=== PATIENT | female | born 1935 | race Caucasian/White ===

== ENCOUNTER 2018-02-08 12:34 | Emergency (ER) | payer MEDICARE ==
[2018-02-08] MEDS ORDERED: HYDROcodone/Acetaminophen 5/325 mg Tablet ONE (14:06)
--- NOTE | 2018-02-08 14:13 | CT ---
CT BRAIN NONCONTRAST: HISTORY: An 82-year-old female, status post acute head trauma from fall. FINDINGS: There is no midline shift or any other mass effect. There is no evidence of acute intracranial hemor rhage, large cortical infarct, obstructive hydrocephalus, or extraaxial fluid collection. The calvar ium is intact. There is diffuse parenchymal volume loss. There are low attenuation areas in the whi te matter. These are nonspecific, but in a patient of this age, they are probably chronic ischemic w lorin matter changes due to microvascular atherosclerosis. There is a left posterior scalp hematoma. IMPRESSION: 1) No acute intracranial findings. 2) Involutional changes and chronic ischemic white matter changes. 3) Acute, traumatic left parieto-occipital soft tissue scalp hematoma. jn [] POS: [facility]
--- NOTE | 2018-02-08 14:19 | CT ---
CT CERVICAL SPINE: INDICATIONS: Fall with injury to neck. TECHNIQUE: Multiple axial tomograms obtained through the cervical spine with multiplanar reconstruction. FINDINGS: The cervical vertebrae maintain height. There are moderate degenerative changes present. There is l oss of disk space at C5-C6 and C6-C7 with posterior subluxation at C5-C6, which appears chronic and d egenerative. There is no evidence of acute fracture. IMPRESSION: Degenerative changes of the cervical spine noted. No acute fracture identified. POS: [facility]
== END 2018-02-08 14:29 | disposition home or self-care (01) ==
LOC: MADERS 12:34
DX: S01.01XA Laceration without foreign body of scalp, initial encounter (principal); W17.89XA Other fall from one level to another, initial encounter
CPT/HCPCS: 70450; 72125

== ENCOUNTER 2018-03-05 12:51 | Emergency (ER) | payer MEDICARE ==
[2018-03-05 14:28] LABS: #Lymphocytes 0.7 thou/uL (1.20-3.40); #Monocytes 0.9 thou/uL (0.11-0.59); #Neutrophils 7.7 thou/uL (1.40-6.50); %Basophils 0.1 % (0.0-1.0); %Eosinophils 0.1 % (0.0-10.0); %Lymphocytes 7.7 % (21.0-51.0); %Monocytes 9.1 % (0.0-10.0); Hemoglobin 14.8 g/dL (12.0-16.0); Mean Corpuscular HGB CONC 32.5 g/dL (32.0-36.0); Mean Corpuscular Hemoglobin 30.7 pg (27.0-31.0); Mean Corpuscular Volume 94.6 fL (78.0-98.0); Mean Platelet Volume 7.4 fL (7.4-10.4); Platelet Count 163 thou/uL (130-400); RBC Distribution Width 12.6 % (11.5-14.5); White Blood Cell (WBC) Count 9.3 thou/uL (4.8-10.8)
[2018-03-05 14:47] LABS: ALT (SGPT) 32 U/L (8-55); AST (SGOT) 48 U/L (5-34); Albumin 4.2 g/dL (3.4-4.8); Alkaline Phosphatase 56 U/L (40-150); Anion Gap 15 mmol/L (10-20); BUN (Urea Nitrogen) 13 mg/dL (9.8-20.1); Bilirubin, Total 1.1 mg/dL (0.2-1.2); CK (CPK) 847 U/L (29-168); Calc. Creatinine Clearance 0 mL/min (70-130); Calcium 9.7 mg/dL (7.8-10.44); Carbon Dioxide 27 mmol/L (23-31); Chloride 106 mmol/L (98-107); Estimated GFR-MDRD 70; Globulin 2.7 g/dL (2.4-3.5); Glucose 95 mg/dL (83-110); Potassium 3.6 mmol/L (3.5-5.1); Protein, Total 6.9 g/dL (6.0-8.3); Sodium 144 mmol/L (136-145)
--- NOTE | 2018-03-05 14:59 | RAD ---
FRONTAL RADIOGRAPH CHEST: 03/05/2018 HISTORY: Altered mental status. COMPARISON: 05/29/2006 FINDINGS: Calcified pulmonary nodules and lymph nodes noted on the right, evidence of prior granulomatous disea se. There is mild increased linear interstitial density with pulmonary hyperinflation. No pneumotho rax of pleural fluid. No focal consolidation or alveolar edema. IMPRESSION: Chronic findings, as detailed above. No focal consolidation or alveolar edema. Findings suggest chr onic obstructive pulmonary disease, in the proper clinical setting. There are also findings consiste nt with prior granulomatous disease. POS: [facility]
--- NOTE | 2018-03-05 15:07 | CT ---
CT CERVICAL SPINE WITHOUT CONTRAST: HISTORY: Neck pain after sliding out of bed this morning. COMPARISON: 02/08/2018 TECHNIQUE: CT cervical spine is performed without contrast. Reformatted images are submitted. FINDINGS: Appropriate articulation of the lateral masses of C1 and C2. Mild degenerative changes of the facets . No malalignment. Intact odontoid process. No craniocervical dissociation. Cervical spine verteb ral body height is maintained. There is no cervical spine fracture. Varying degrees of central canal stenosis and foraminal narrowing, on the basis of degenerative savage e. Evaluation is limited by technique. Soft tissue neck structures are unremarkable. IMPRESSION: 1. Varying degrees of central canal stenosis and foraminal narrowing. 2. No evidence of a cervical spine fracture. POS: [facility]
--- NOTE | 2018-03-05 15:12 | CT ---
CT HEAD NONCONTRAST: INDICATION: Weakness, injury. FINDINGS: There is abnormal mixed density bilateral extraaxial hemorrhagic collection measuring 6 mm at the lev el of the septum pellucidum associated with sulcal effacement of the right hemisphere is noted. No i ntraventricular hemorrhagic extension is seen. There is a small component of subdural hemorrhage ext ending along the interhemispheric falx. Stable calcified extraaxial mass of the left middle cranial fossa is seen. IMPRESSION: Bilateral mixed-density subdural hematomas, greatest on the right, with associated sulcal effacement and leftward subfalcine herniation. Recommend urgent neurosurgical consultation. Telephone call of findings placed to ER physician, Dr. Maximino Miner, at the time of dictation 1440 h ours 03/05/2018. CODE CR
[2018-03-05 15:27] LABS: INR-International Normal Ratio 0.9; Prothrombin Time 12.6 SEC (12.0-14.7)
== END 2018-03-05 16:50 | disposition short-term general hospital (02) ==
LOC: MADERS 12:51
DX: I62.01 Nontraumatic acute subdural hemorrhage (principal); I62.03 Nontraumatic chronic subdural hemorrhage; Z79.899 Other long term (current) drug therapy
CPT/HCPCS: 70450; 71045; 72125; 80053; 82550; 83880; 84484; 85025; 85610; 93005

== ENCOUNTER 2018-03-09 15:27 | Inpatient (IN) | payer MEDICARE ==
[2018-03-09] MEDS ORDERED: Bisacodyl 5 MG TAB PO PRN (17:07)
[2018-03-09] MEDS ORDERED: Ondansetron ODT 4 MG TAB PO PRN (17:07)
[2018-03-09] MEDS ORDERED: Senokot S 8.6-50 MG TAB PO PRN (17:07)
[2018-03-09] MEDS: Acetaminophen 325 MG TAB PO PRN (20:32)
[2018-03-09] MEDS: Famotidine 20 MG TAB PO SCH (20:32)
[2018-03-09] MEDS: Clindamycin 150 MG CAP PO SCH (20:32)
--- NOTE | 2018-03-10 01:00 | HP ---
PRIMARY CARE PHYSICIAN: Out of town. REASON FOR ADMISSION: For skilled rehabilitation at [facility] secondary to physical deconditioning status post acute on chronic subdural hematoma, status post shama hole drain, and status post pacemaker placement due to asystole. HISTORY OF PRESENT ILLNESS: Ms. Traylor is an 82-year-old , very pleasant female, with a past medical history of hypertension, hypothyroidism, and multiple falls. The patient was admitted to [facility] from March 05, 2018 to March 09, 2018. The patient was noted to have acute on chronic subdural hematomas. She initially presented to the emergency room due to physical deconditioning, multiple falls, and confusion. Per the patient's daughter, she was undergoing some cardiac workup as an outpatient to determine the cause of her falls and she was seen by Neurologist, Dr. Mcarthur and was using a cane for ambulation, but she lost the cane in the last month and had fallen multiple times since then. Daughter has noted she was confused on the day of admission, which was not her baseline, so she was presented to the emergency room due to this. During hospitalization, the patient initially declined to have shama surgery, but she later changed her mind. The patient did undergo the procedure by Dr. Ariel Pedro on March 07, 2018. Then, she had a drain placed and the subdural drain later removed on February. The patient tolerated the procedure and was back in baseline. The patient was also noted to have asystole, tachycardia with bradycardia during hospitalization and the decision was made to refer the patient to have a pacemaker. The patient did undergo pacemaker placement also on the and she tolerated this well. The decision was made to admit the patient in a Swing Bed for physical therapy as she was severely deconditioned. Upon evaluation of the patient today, she had her eldest daughter and her son in the room with her. She was glad to be in facility. She denied any pain. She is excited to start physical therapy. She is aware she does have a dual-chamber pacemaker and she is now status post the shama holes. The patient denies any headaches, chest pain, shortness of breath, dizziness, or palpitation. PAST MEDICAL HISTORY: 1. Hypertension. 2. Hypothyroidism. 3. Recurrent falls. PAST SURGICAL HISTORY: Status post pacemaker and shama holes. ALLERGIES: 1. TOMATO. 2. CHOCOLATE. 3. MELON. 4. PENICILLIN. 5. PROCAINE. CODE STATUS: DNR. MEDICATIONS: 1. [place] Thyroid 60 daily. 2. Metoprolol 50 mg once a day. SOCIAL HISTORY: The patient lives at home by herself. She is a nonsmoker and nondrinker. Her son lives on the property close to her. REVIEW OF SYSTEMS: GENERAL: The patient denies any fever or chills, complains of generalized weakness and occasional sores to her bones. HEENT: The patient denies any nasal congestion, nosebleed, trouble swallowing, oral pain, or vision changes. CHEST: Denies any chest pain, shortness of breath, palpitation, or dizziness. RESPIRATORY: Denies any cough, shortness of breath, or wheezing. ABDOMEN: Denies abdominal pain, nausea, vomiting, constipation, or diarrhea. GENITOURINARY: Denies dysuria or hematuria. SKIN: Complains of bruising, status post falls. NEUROLOGIC: No focal deficits. PSYCHIATRY: No hallucination or delusion. PHYSICAL EXAMINATION: VITAL SIGNS: Temperature 98.3, pulse 89, respirations 18, blood pressure 136/65 , O2 saturation 95% on room air. GENERAL: Alert, awake, and oriented x3, lying comfortably in bed, in no apparent distress. HEENT: Normocephalic, atraumatic. Anicteric sclerae. Oral mucous membranes are moist. NECK: Supple. No JVD. CHEST: Clear to auscultation bilaterally. HEART: S1 and S2, regular rate and rhythm. No murmurs, rubs or gallops. Left upper chest with a pacemaker. ABDOMEN: Positive bowel sounds. Soft, nontender, and nondistended. No hepatomegaly. EXTREMITIES: No edema or cyanosis. PULSES: Carotid, femoral, radial, and dorsalis pedis intact and symmetrical. SKIN: The patient has a large purplish green bruise to her left knee and she does have bruising to the pacemaker site on the left chest wall. The patient does have brie to right side of frontal scalp with surrounding dry blood. No swelling or signs of infection. NEUROLOGIC: Cranial nerves 2 through 12 grossly intact. ASSESSMENT: 1. Physical deconditioning. 2. Urinary tract infection. 3. Status post shama hole drainage due to acute on chronic subdural hematoma. 4. Asystole, status post pacemaker. 5. Hypothyroidism. 6. Hypertension. PLAN: The patient is being admitted to [facility] for skilled rehabilitation and gait strengthening. We will consult physical therapy for strengthening in order to gain modified independence with her gait and occupational therapy to help with activities of daily living. We will continue clindamycin to complete a 7-day course x4 days. We will continue the patient's home medications, metoprolol and [place] Thyroid. We will place the patient on Pepcid for GI prophylaxis and compression stockings for DVT prophylaxis. ESTIMATED LENGTH OF STAY: 2 to 3 weeks. DISPOSITION: Home. CODE STATUS: The patient is a DNR. FOLLOWUP: The patient is to follow up with neurosurgeon in 2 weeks and revenue coordinator in 2 weeks. Job ID: [id number] [facility]
[2018-03-10] MEDS: Clindamycin 150 MG CAP PO SCH ×3 (08:18→20:04)
[2018-03-10] MEDS: Famotidine 20 MG TAB PO SCH ×2 (08:19→20:04)
[2018-03-10] MEDS ORDERED: Thyroid 30 MG TAB PO SCH (09:00)
[2018-03-10] MEDS: Acetaminophen 325 MG TAB PO PRN (19:47)
[2018-03-11] MEDS: Thyroid 30 MG TAB PO SCH (05:07)
[2018-03-11] MEDS: Clindamycin 150 MG CAP PO SCH ×3 (08:40→21:03)
[2018-03-11] MEDS: Famotidine 20 MG TAB PO SCH ×2 (08:40→21:03)
[2018-03-12] MEDS: Acetaminophen 325 MG TAB PO PRN ×3 (02:20→20:31)
[2018-03-12] MEDS: Thyroid 30 MG TAB PO SCH (05:42)
[2018-03-12] MEDS: Clindamycin 150 MG CAP PO SCH ×3 (08:38→20:31)
[2018-03-12] MEDS: Famotidine 20 MG TAB PO SCH ×2 (08:38→20:31)
[2018-03-13] MEDS: Thyroid 30 MG TAB PO SCH (05:22)
[2018-03-13] MEDS: Clindamycin 150 MG CAP PO SCH ×3 (08:11→20:39)
[2018-03-13] MEDS: Acetaminophen 325 MG TAB PO PRN ×3 (08:11→20:39)
[2018-03-13] MEDS: Famotidine 20 MG TAB PO SCH ×2 (08:14→20:39)
[2018-03-14] MEDS: Thyroid 30 MG TAB PO SCH (05:50)
[2018-03-14] MEDS: Acetaminophen 325 MG TAB PO PRN ×3 (08:39→20:01)
[2018-03-14] MEDS: Famotidine 20 MG TAB PO SCH ×2 (08:39→20:00)
[2018-03-15] MEDS: Thyroid 30 MG TAB PO SCH (05:33)
[2018-03-15] MEDS: Famotidine 20 MG TAB PO SCH ×2 (08:12→20:20)
[2018-03-15] MEDS: Acetaminophen 325 MG TAB PO PRN ×2 (11:21→19:28)
[2018-03-16] MEDS: Thyroid 30 MG TAB PO SCH (06:08)
[2018-03-16] MEDS: Famotidine 20 MG TAB PO SCH ×2 (08:18→21:12)
[2018-03-16] MEDS: Acetaminophen 325 MG TAB PO PRN ×2 (08:20→21:12)
[2018-03-16] MEDS ORDERED: Senokot S 8.6-50 MG TAB PO PRN (14:30)
[2018-03-17] MEDS: Thyroid 30 MG TAB PO SCH (05:21)
[2018-03-17] MEDS: Famotidine 20 MG TAB PO SCH ×2 (08:28→20:29)
[2018-03-17] MEDS: Acetaminophen 325 MG TAB PO PRN (20:29)
[2018-03-18] MEDS: Thyroid 30 MG TAB PO SCH (05:28)
[2018-03-18] MEDS: Famotidine 20 MG TAB PO SCH ×2 (08:20→20:02)
[2018-03-18] MEDS: Acetaminophen 325 MG TAB PO PRN ×2 (11:19→20:04)
[2018-03-19] MEDS: Thyroid 30 MG TAB PO SCH (05:29)
[2018-03-19] MEDS: Famotidine 20 MG TAB PO SCH ×2 (08:35→21:04)
[2018-03-19] MEDS: Acetaminophen 325 MG TAB PO PRN (23:43)
[2018-03-20] MEDS: Thyroid 30 MG TAB PO SCH (06:10)
[2018-03-20] MEDS: Famotidine 20 MG TAB PO SCH ×2 (08:20→20:52)
[2018-03-20] MEDS: Acetaminophen 325 MG TAB PO PRN (20:53)
[2018-03-21] MEDS: Thyroid 30 MG TAB PO SCH (05:45)
[2018-03-21] MEDS: Famotidine 20 MG TAB PO SCH ×2 (07:54→20:25)
[2018-03-21] MEDS: Acetaminophen 325 MG TAB PO PRN (20:25)
[2018-03-22] MEDS: Thyroid 30 MG TAB PO SCH (05:43)
[2018-03-22] MEDS: Famotidine 20 MG TAB PO SCH ×2 (07:54→21:01)
[2018-03-22] MEDS: Acetaminophen 325 MG TAB PO PRN ×3 (07:57→21:01)
[2018-03-23] MEDS: Thyroid 30 MG TAB PO SCH (05:39)
[2018-03-23] MEDS: Famotidine 20 MG TAB PO SCH ×2 (08:57→20:03)
[2018-03-23] MEDS: Acetaminophen 325 MG TAB PO PRN (19:31)
[2018-03-24] MEDS: Thyroid 30 MG TAB PO SCH (05:59)
[2018-03-24] MEDS: Famotidine 20 MG TAB PO SCH ×2 (09:27→20:38)
[2018-03-24] MEDS: Acetaminophen 325 MG TAB PO PRN (20:38)
[2018-03-25] MEDS: Thyroid 30 MG TAB PO SCH (05:58)
[2018-03-25] MEDS: Famotidine 20 MG TAB PO SCH ×2 (08:31→21:19)
[2018-03-25] MEDS: Acetaminophen 325 MG TAB PO PRN (08:32)
[2018-03-26] MEDS: Thyroid 30 MG TAB PO SCH (06:35)
[2018-03-26] MEDS: Famotidine 20 MG TAB PO SCH ×2 (08:33→20:10)
[2018-03-26] MEDS: Acetaminophen 325 MG TAB PO PRN (08:33)
[2018-03-27] MEDS: Thyroid 30 MG TAB PO SCH (05:59)
[2018-03-27] MEDS: Famotidine 20 MG TAB PO SCH ×2 (09:00→20:09)
[2018-03-28] MEDS: Thyroid 30 MG TAB PO SCH (05:51)
[2018-03-28] MEDS: Famotidine 20 MG TAB PO SCH ×2 (08:11→20:10)
[2018-03-28] MEDS: Acetaminophen 325 MG TAB PO PRN (19:27)
[2018-03-29] MEDS: Thyroid 30 MG TAB PO SCH (06:03)
[2018-03-29] MEDS: Famotidine 20 MG TAB PO SCH ×2 (08:16→21:19)
[2018-03-29] MEDS: Acetaminophen 325 MG TAB PO PRN ×2 (08:16→14:50)
[2018-03-30] MEDS: Thyroid 30 MG TAB PO SCH (05:47)
[2018-03-30] MEDS: Famotidine 20 MG TAB PO SCH ×2 (08:32→21:18)
[2018-03-30] MEDS: Acetaminophen 325 MG TAB PO PRN ×3 (08:53→21:20)
[2018-03-31] MEDS: Thyroid 30 MG TAB PO SCH (05:59)
[2018-03-31] MEDS: Famotidine 20 MG TAB PO SCH ×2 (08:36→20:07)
[2018-03-31] MEDS: Acetaminophen 325 MG TAB PO PRN ×2 (08:39→20:07)
[2018-04-01] MEDS: Thyroid 30 MG TAB PO SCH (05:43)
[2018-04-01] MEDS: Famotidine 20 MG TAB PO SCH ×2 (08:51→20:56)
[2018-04-01] MEDS: Acetaminophen 325 MG TAB PO PRN ×2 (08:51→19:24)
[2018-04-02] MEDS: Thyroid 30 MG TAB PO SCH (05:35)
[2018-04-02] MEDS: Acetaminophen 325 MG TAB PO PRN ×2 (09:13→20:35)
[2018-04-02] MEDS: Famotidine 20 MG TAB PO SCH ×2 (09:13→20:35)
[2018-04-03] MEDS: Thyroid 30 MG TAB PO SCH (06:01)
[2018-04-03] MEDS: Famotidine 20 MG TAB PO SCH ×2 (08:58→20:10)
[2018-04-03] MEDS: Acetaminophen 325 MG TAB PO PRN (20:11)
[2018-04-04] MEDS: Thyroid 30 MG TAB PO SCH (05:39)
[2018-04-04] MEDS: Famotidine 20 MG TAB PO SCH ×2 (08:11→20:10)
[2018-04-04] MEDS: Acetaminophen 325 MG TAB PO PRN ×2 (08:12→20:10)
[2018-04-05] MEDS: Thyroid 30 MG TAB PO SCH (05:05)
[2018-04-05] MEDS: Famotidine 20 MG TAB PO SCH ×2 (08:07→20:45)
[2018-04-05] MEDS: Acetaminophen 325 MG TAB PO PRN ×2 (14:27→20:45)
[2018-04-06] MEDS: Thyroid 30 MG TAB PO SCH (05:40)
[2018-04-06] MEDS: Famotidine 20 MG TAB PO SCH ×2 (08:49→20:45)
[2018-04-06] MEDS: Acetaminophen 325 MG TAB PO PRN ×2 (08:52→19:20)
[2018-04-07] MEDS: Thyroid 30 MG TAB PO SCH (05:38)
[2018-04-07] MEDS: Acetaminophen 325 MG TAB PO PRN ×2 (08:22→19:29)
[2018-04-07] MEDS: Famotidine 20 MG TAB PO SCH ×2 (08:22→20:18)
[2018-04-08] MEDS: Thyroid 30 MG TAB PO SCH (05:54)
[2018-04-08] MEDS: Famotidine 20 MG TAB PO SCH ×2 (08:33→20:52)
[2018-04-09] MEDS: Thyroid 30 MG TAB PO SCH (05:08)
[2018-04-09] MEDS: Famotidine 20 MG TAB PO SCH ×2 (08:19→20:00)
[2018-04-09] MEDS: Acetaminophen 325 MG TAB PO PRN (19:27)
[2018-04-10] MEDS: Thyroid 30 MG TAB PO SCH (05:43)
[2018-04-10] MEDS: Famotidine 20 MG TAB PO SCH ×2 (08:51→20:16)
[2018-04-10] MEDS: Acetaminophen 325 MG TAB PO PRN ×2 (14:10→19:23)
[2018-04-11] MEDS: Thyroid 30 MG TAB PO SCH (05:55)
[2018-04-11] MEDS: Famotidine 20 MG TAB PO SCH ×2 (08:27→20:32)
[2018-04-11] MEDS: Acetaminophen 325 MG TAB PO PRN ×2 (10:45→17:03)
[2018-04-11] MEDS ORDERED: Metoprolol Tartrate 50 MG TAB PO SCH (18:15)
[2018-04-12] MEDS: Thyroid 30 MG TAB PO SCH (05:30)
[2018-04-12] MEDS: Famotidine 20 MG TAB PO SCH ×2 (09:28→21:01)
[2018-04-13] MEDS: Thyroid 30 MG TAB PO SCH (05:22)
[2018-04-13] MEDS: Famotidine 20 MG TAB PO SCH ×2 (08:02→20:31)
[2018-04-13] MEDS: Acetaminophen 325 MG TAB PO PRN (20:31)
[2018-04-14] MEDS: Thyroid 30 MG TAB PO SCH (05:30)
[2018-04-14] MEDS: Famotidine 20 MG TAB PO SCH ×2 (08:35→20:30)
[2018-04-14] MEDS: Acetaminophen 325 MG TAB PO PRN ×3 (08:37→20:30)
[2018-04-15] MEDS: Thyroid 30 MG TAB PO SCH (05:18)
[2018-04-15] MEDS: Famotidine 20 MG TAB PO SCH ×2 (08:26→20:29)
[2018-04-15] MEDS: Acetaminophen 325 MG TAB PO PRN ×3 (08:27→20:28)
[2018-04-16] MEDS: Thyroid 30 MG TAB PO SCH (05:14)
[2018-04-16] MEDS: Famotidine 20 MG TAB PO SCH ×2 (09:36→21:08)
[2018-04-16] MEDS: Acetaminophen 325 MG TAB PO PRN ×2 (09:36→21:55)
[2018-04-16 21:16] VITALS: BMI 20.9
[2018-04-17] MEDS: Thyroid 30 MG TAB PO SCH (06:10)
[2018-04-17] MEDS: Famotidine 20 MG TAB PO SCH ×2 (09:11→20:50)
[2018-04-17] MEDS: Acetaminophen 325 MG TAB PO PRN (20:50)
[2018-04-18] MEDS: Thyroid 30 MG TAB PO SCH (05:44)
[2018-04-18] MEDS: Acetaminophen 325 MG TAB PO PRN ×3 (08:26→21:06)
[2018-04-18] MEDS: Famotidine 20 MG TAB PO SCH ×2 (08:26→21:06)
[2018-04-18] MEDS ORDERED: Loratadine 10 MG TAB PO SCH (14:45)
[2018-04-19] MEDS: Thyroid 30 MG TAB PO SCH (05:33)
[2018-04-19] MEDS: Loratadine 10 MG TAB PO SCH (09:07)
[2018-04-19] MEDS: Famotidine 20 MG TAB PO SCH ×2 (09:07→20:50)
[2018-04-19] MEDS: Acetaminophen 325 MG TAB PO PRN ×2 (09:08→16:56)
[2018-04-20] MEDS: Thyroid 30 MG TAB PO SCH (05:44)
[2018-04-20 08:51] VITALS: BP 165/70; TEMP 97.7
[2018-04-20] MEDS: Famotidine 20 MG TAB PO SCH (09:04)
[2018-04-20] MEDS: Loratadine 10 MG TAB PO SCH (09:04)
--- NOTE | 2018-04-21 03:08 | DIS ---
DATE OF ADMISSION: 03/09/2018 DATE OF DISCHARGE: 04/20/2018 DISCHARGING PHYSICIAN AND ADMITTING PHYSICIAN: Juan Shine MD. PRIMARY CARE PHYSICIAN: Out of town. DISCHARGE DISPOSITION: To home. DISCHARGE DIAGNOSES: 1. Physical debility. 2. Subdural hematoma, status post shama hole. 3. Tachy-bessy syndrome, status post pacemaker. 4. Hypertension. 5. Hypothyroidism. 6. Urinary tract infection, resolved. 7. Gait instability. DISCHARGE MEDICATIONS: 1. [place] Thyroid 60 daily. 2. Metoprolol XL 100 daily. DISCHARGE INSTRUCTIONS: Follow up with primary care physician within 1 week. Follow up with product promoter sales person within 1 week. [facility] to start physical therapy and occupational therapy at [facility] emergency department. BRIEF HOSPITAL COURSE: Ms. Traylor is an 82-year-old female who was admitted to [facility] in [place] March 05, 2018 to March 09, 2018 due to acute on chronic subdural hematomas. The patient underwent shama hole by Dr. Ariel Pedro and she tolerated the procedure well. The patient was also noted to have tachy-bessy syndrome during hospitalization and she underwent pacemaker and this improved significantly. Due to recent surgeries and recurrent fall, the patient was noted to be deconditioned and transferred to [place] for extended care physical therapy. The patient underwent physical therapy; she tolerated it well. She had no issues. She had no episodes of fall. She was able to follow up with neurosurgeon. We took out stitches and brie, and she followed up with product promoter sales person who monitored the pacemaker. She did not have any issues throughout hospitalization. The patient, on day of discharge, was able to walk with physical therapy and ambulate using a 4-wheeled rolling walker with no assistance for 450 feet. The patient will be discharged with her family back to the home. The family notes they have arranged a provider and the patient would also continue physical therapy and occupational therapy with [facility]. During hospitalization, the patient had episodes of hypertension and headaches, and the headaches were well controlled with Tylenol, metoprolol was increased from 50 to 100 and this helped her blood pressure. The patient discharged in a stable condition. DISCHARGE VITAL SIGNS: Temperature 97.7, pulse 67, respirations 18, O2 saturation 96 on room air, blood pressure 165/70 Job ID: [id number]
== END 2018-04-20 13:40 | disposition home or self-care (01) | DRG 65 ==
LOC: MADMS 16:07
PROVIDERS: ADMIT Family Medicine; ATTEND Family Medicine
DX: I62.03 Nontraumatic chronic subdural hemorrhage (principal); N39.0 Urinary tract infection, site not specified; E03.9 Hypothyroidism, unspecified; Z66 Do not resuscitate; I10 Essential (primary) hypertension; R29.6 Repeated falls; I49.5 Sick sinus syndrome; R53.81 Other malaise; R26.89 Other abnormalities of gait and mobility; R51 Headache; Z95.0 Presence of cardiac pacemaker; Z88.0 Allergy status to penicillin; Z88.4 Allergy status to anesthetic agent; Z91.018 Allergy to other foods
CPT/HCPCS: G8978-GP-CK; G8979-GP-CI; G8987-GO-CK; G8988-GO-CI

== ENCOUNTER 2018-05-30 16:30 | Inpatient (IN) | payer MEDICARE ==
[2018-05-30] MEDS ORDERED: Ondansetron ODT 4 MG TAB PO PRN (20:40)
[2018-05-30] MEDS: Famotidine 20 MG TAB PO SCH (22:11)
[2018-05-30] MEDS: Acetaminophen 325 MG TAB PO PRN (22:11)
[2018-05-31] MEDS: Famotidine 20 MG TAB PO SCH ×2 (08:32→20:57)
[2018-05-31] MEDS: Loratadine 10 MG TAB PO SCH (08:32)
[2018-05-31] MEDS ORDERED: Prevnar 13-Val Conj/PF 0.5 ML SYRINGE IM ONE (09:00)
[2018-05-31] MEDS ORDERED: Thyroid 30 MG TAB PO SCH (09:00)
--- NOTE | 2018-06-01 01:11 | HP ---
PRIMARY CARE PHYSICIAN: Out of town. REASON FOR ADMISSION: For skilled rehabilitation at [place] [facility] secondary to physical deconditioning, status post acute rhabdomyolysis and hypothermia. HISTORY OF PRESENT ILLNESS: Ms. Traylor is an 82-year-old female with a medical history of hypertension, hypothyroidism, multiple falls, subdural hematoma, asystole, status post pacemaker, hypothyroidism, and hypertension. The patient lives in a house by herself. Her son lives in a building close to her. She was found apparently on the floor May 23 outside the home, by a family member. She fell the night before and was und the next morning The patient was sent to [facility] and was found to be hypothermic and had rhabdomyolysis, and she was started on IV fluids. Her CPK was very elevated, the patient was also noted to have some elevated cardiac markers and liver enzymes, and she was admitted to the ICU. Her temperature upon admission was 88.7, and the patient was noted to have multiple abrasions and bruises all over extremities and left side of her face and neck. She was confused and need to be subsequently admitted. Her CK upon admission was 10,303. The patient was given IV fluids and aggressively hydrated, and she progressively improved. During hospitalization, she was also thought to have a pneumonia and was treated with Zosyn, but repeat chest x-ray showed CHF symptoms instead of the pneumonia. The patient's Zosyn was discontinued, and CPK was progressively monitored, and started trending down nicely. By day of discharge , her CPK had gone down to 2500. The patient's mental status came back to baseline and temperature came back to normal. The patient was subsequently noted to be pretty physically deconditioned and the decision was made to transfer her to [facility] in [place] for skilled rehabilitation with future plan to discharge her possibly to a long term or an assisted living. Upon evaluation of the patient today, she was by herself in her room. No family member was present. She states she made a horrible mistake, but was unable to tell me what the mistake was. She is aware she cannot go back to her home, but she wants the decision to be made by her children. The patient denies any headaches, chest pain, shortness of breath, palpitations, or dizziness. PAST MEDICAL HISTORY: Hypertension, hypothyroidism, subdural hematoma, and recurrent falls. PAST SURGICAL HISTORY: Status post pacemaker, shama holes, thyroidectomy, bladder suspension, tonsillectomy, and hysterectomy. ALLERGIES: TOMATO, CHOCOLATE, MELON, PENICILLIN, AND NOVOCAIN. HOME MEDICATIONS: 1. Metoprolol 100 daily. 2. [place] Thyroid 60 daily. REVIEW OF SYSTEMS: GENERAL: The patient denies any fever or chills, complains of generalized weakness. HEENT: Denies any nasal congestion, nosebleed, trouble swallowing, oral pain, or vision changes. CHEST: Denies chest pain, shortness of breath, palpitation, or dizziness. RESPIRATORY: Denies cough, shortness of breath, or wheezing. ABDOMEN: Denies abdominal pain, nausea, vomiting, constipation, or diarrhea. GENITOURINARY: Denies dysuria or hematuria. SKIN: Complains of bruising and abrasions status post falls. NEUROLOGICAL: No focal deficits. PSYCHIATRY: The patient is confused, but no hallucination or delusion. The patient oriented x2. PHYSICAL EXAMINATION: VITAL SIGNS: Temperature 99.2, pulse 105, respirations 18, O2 saturation 97% on room air, and blood pressure 126/63. GENERAL: The patient is alert, awake, and oriented x2. Sitting up in bedside chair, in no apparent distress. HEENT: Normocephalic and atraumatic. Anicteric sclerae. Oral mucous membranes are moist. NECK: Supple. No JVD. CHEST: Clear to auscultation bilaterally. HEART: S1 and S2. No murmurs. Regular rate and rhythm. No gallops. ABDOMEN: Positive bowel sounds. Soft, nontender, and nondistended. EXTREMITIES: No edema or cyanosis. NEUROLOGICAL: Cranial nerves 2 through 12 grossly intact. PULSES: Carotid, femoral, radial, dorsalis pedis intact and symmetrical. SKIN: The patient does have a large purplish blue bruise to the left side of the face and neck. She does have some bruising to upper extremities and some healing bruising to the lower extremities also. ASSESSMENT: 1. Physical deconditioning. 2. Acute rhabdomyolysis. 3. Mild dementia. 4. Gait instability. 5. Hypertension. 6. Hypothyroidism. 7. Elevated liver enzymes. 8. Mild thrombocytopenia. PLAN: The patient has been admitted to [place] [facility] for skilled rehabilitation and gait strengthening. We will consult Physical Therapy for strengthening in order to gain modified independence with gait and Occupational Therapy to help with activities of daily living. We will consult the social science analyst to help with transition into possibly long term in assisted living. We will hold regular family meetings to make sure family members are aligned and on board with discharge planning. We will resume patient's home medications. We will place patient on Pepcid for GI prophylaxis and compression stockings for DVT prophylaxis. We will monitor the patient's CPK trend and liver enzymes closely. We will monitor her skin and make sure no further skin breakdown and no infections to current bruised sites. ESTIMATED LENGTH OF STAY: 2 to 3 weeks. DISPOSITION: assisted. CODE STATUS: The patient is a DNR. Job ID: [id number] [facility]
[2018-06-01] MEDS: Thyroid 30 MG TAB PO SCH (05:23)
[2018-06-01] MEDS: Famotidine 20 MG TAB PO SCH ×2 (08:34→20:27)
[2018-06-01] MEDS: Loratadine 10 MG TAB PO SCH (08:35)
[2018-06-01 10:50] LABS: ALT (SGPT) 62 U/L (8-55); AST (SGOT) 57 U/L (5-34); Albumin 3.6 g/dL (3.4-4.8); Alkaline Phosphatase 42 U/L (40-150); Anion Gap 14 mmol/L (10-20); BUN (Urea Nitrogen) 15 mg/dL (9.8-20.1); Bilirubin, Total 0.8 mg/dL (0.2-1.2); CK (CPK) 442 U/L (29-168); Calc. Creatinine Clearance 51 mL/min (70-130); Calcium 9.3 mg/dL (7.8-10.44); Carbon Dioxide 26 mmol/L (23-31); Chloride 107 mmol/L (98-107); Estimated GFR-MDRD 78; Globulin 2.7 g/dL (2.4-3.5); Glucose 74 mg/dL (83-110); Protein, Total 6.3 g/dL (6.0-8.3); Sodium 143 mmol/L (136-145)
[2018-06-01 11:16] LABS: #Eosinphils 0.2 thou/uL (0.0-0.7); #Lymphocytes 0.8 thou/uL (1.20-3.40); #Monocytes 0.7 thou/uL (0.11-0.59); #Neutrophils 4.1 thou/uL (1.40-6.50); %Basophils 0.7 % (0.0-1.0); %Eosinophils 3.6 % (0.0-10.0); %Lymphocytes 14.3 % (21.0-51.0); %Monocytes 11.3 % (0.0-10.0); %Neutrophils 70.1 % (42.0-75.0); Hemoglobin 14.7 g/dL (12.0-16.0); Mean Corpuscular HGB CONC 32.2 g/dL (32.0-36.0); Mean Corpuscular Hemoglobin 30.7 pg (27.0-31.0); Mean Corpuscular Volume 95.2 fL (78.0-98.0); Mean Platelet Volume 7.1 fL (7.4-10.4); Platelet Count 234 thou/uL (130-400); RBC Distribution Width 14.1 % (11.5-14.5); White Blood Cell (WBC) Count 5.8 thou/uL (4.8-10.8)
[2018-06-02] MEDS: Thyroid 30 MG TAB PO SCH (06:02)
[2018-06-02] MEDS: Loratadine 10 MG TAB PO SCH (08:17)
[2018-06-02] MEDS: Famotidine 20 MG TAB PO SCH ×2 (08:17→20:41)
[2018-06-03] MEDS: Thyroid 30 MG TAB PO SCH (05:57)
[2018-06-03] MEDS: Loratadine 10 MG TAB PO SCH (08:43)
[2018-06-03] MEDS: Famotidine 20 MG TAB PO SCH ×2 (08:44→20:22)
[2018-06-03] MEDS: Acetaminophen 325 MG TAB PO PRN (16:59)
[2018-06-04] MEDS: Thyroid 30 MG TAB PO SCH (04:57)
[2018-06-04] MEDS: Acetaminophen 325 MG TAB PO PRN ×2 (07:45→14:29)
[2018-06-04] MEDS: Famotidine 20 MG TAB PO SCH ×2 (08:20→21:07)
[2018-06-04] MEDS: Loratadine 10 MG TAB PO SCH (08:20)
[2018-06-05] MEDS: Thyroid 30 MG TAB PO SCH (06:23)
[2018-06-05] MEDS: Loratadine 10 MG TAB PO SCH (08:25)
[2018-06-05] MEDS: Famotidine 20 MG TAB PO SCH ×2 (08:25→19:53)
[2018-06-05] MEDS: Acetaminophen 325 MG TAB PO PRN (08:27)
[2018-06-06] MEDS: Thyroid 30 MG TAB PO SCH (05:47)
[2018-06-06] MEDS: Loratadine 10 MG TAB PO SCH (08:22)
[2018-06-06] MEDS: Famotidine 20 MG TAB PO SCH ×2 (08:22→20:38)
[2018-06-07] MEDS: Thyroid 30 MG TAB PO SCH (05:04)
[2018-06-07] MEDS: Famotidine 20 MG TAB PO SCH ×2 (08:52→21:17)
[2018-06-07] MEDS: Acetaminophen 325 MG TAB PO PRN (08:52)
[2018-06-07] MEDS: Loratadine 10 MG TAB PO SCH (08:52)
[2018-06-08] MEDS: Thyroid 30 MG TAB PO SCH (05:17)
[2018-06-08 05:34] LABS: ALT (SGPT) 25 U/L (8-55); AST (SGOT) 21 U/L (5-34); Albumin 3.2 g/dL (3.4-4.8); Alkaline Phosphatase 44 U/L (40-150); Anion Gap 12 mmol/L (10-20); BUN (Urea Nitrogen) 18 mg/dL (9.8-20.1); Bilirubin, Total 0.6 mg/dL (0.2-1.2); CK (CPK) 63 U/L (29-168); Calc. Creatinine Clearance 52 mL/min (70-130); Calcium 8.7 mg/dL (7.8-10.44); Carbon Dioxide 26 mmol/L (23-31); Chloride 109 mmol/L (98-107); Estimated GFR-MDRD 79; Globulin 2.4 g/dL (2.4-3.5); Glucose 91 mg/dL (83-110); Potassium 3.8 mmol/L (3.5-5.1); Protein, Total 5.6 g/dL (6.0-8.3); Sodium 143 mmol/L (136-145)
[2018-06-08] MEDS: Loratadine 10 MG TAB PO SCH (09:31)
[2018-06-08] MEDS: Famotidine 20 MG TAB PO SCH ×2 (09:31→20:07)
[2018-06-08] MEDS: Acetaminophen 325 MG TAB PO PRN (20:07)
[2018-06-09] MEDS: Thyroid 30 MG TAB PO SCH (05:30)
[2018-06-09] MEDS: Loratadine 10 MG TAB PO SCH (08:00)
[2018-06-09] MEDS: Famotidine 20 MG TAB PO SCH ×2 (08:00→21:09)
[2018-06-09] MEDS: Acetaminophen 325 MG TAB PO PRN (21:11)
[2018-06-10] MEDS: Thyroid 30 MG TAB PO SCH (05:27)
[2018-06-10] MEDS: Loratadine 10 MG TAB PO SCH (07:57)
[2018-06-10] MEDS: Famotidine 20 MG TAB PO SCH ×2 (07:57→19:59)
[2018-06-10] MEDS: Acetaminophen 325 MG TAB PO PRN ×2 (15:35→19:51)
[2018-06-11] MEDS: Thyroid 30 MG TAB PO SCH (05:39)
[2018-06-11] MEDS: Loratadine 10 MG TAB PO SCH (09:37)
[2018-06-11] MEDS: Famotidine 20 MG TAB PO SCH ×2 (09:38→20:32)
[2018-06-11] MEDS: Acetaminophen 325 MG TAB PO PRN ×2 (13:37→20:32)
--- NOTE | 2018-06-11 15:06 | CT ---
CT BRAIN WITHOUT CONTRAST: Date: 06/11/18 HISTORY: Fall, history of subdural hematoma. FINDINGS: Comparison made with exam of 04/19/18. Right frontal bur hole is again seen. No evidence of acute infarct, hemorrhage, midline shift, or abn ormal extra-axial fluid collections are seen. The ventricular size is stable and the basilar cisterns are patent. No acute calvarial abnormalities are identified. The focal area of dense calcification i n the left middle cranial fossa is unchanged. IMPRESSION: No CT evidence of acute intracranial process. POS: [facility]
[2018-06-12] MEDS: Thyroid 30 MG TAB PO SCH (05:18)
[2018-06-12] MEDS: Famotidine 20 MG TAB PO SCH ×2 (08:57→20:20)
[2018-06-12] MEDS: Loratadine 10 MG TAB PO SCH (08:57)
[2018-06-12] MEDS: Acetaminophen 325 MG TAB PO PRN (20:20)
[2018-06-13] MEDS: Thyroid 30 MG TAB PO SCH (05:07)
[2018-06-13] MEDS: Famotidine 20 MG TAB PO SCH ×2 (08:06→20:42)
[2018-06-13] MEDS: Loratadine 10 MG TAB PO SCH (08:07)
[2018-06-14] MEDS: Thyroid 30 MG TAB PO SCH (05:15)
[2018-06-14] MEDS: Loratadine 10 MG TAB PO SCH (08:11)
[2018-06-14] MEDS: Famotidine 20 MG TAB PO SCH ×2 (08:11→20:01)
[2018-06-14] MEDS: Acetaminophen 325 MG TAB PO PRN ×2 (13:21→20:00)
[2018-06-15] MEDS: Thyroid 30 MG TAB PO SCH (06:24)
[2018-06-15] MEDS: Acetaminophen 325 MG TAB PO PRN ×2 (08:30→20:43)
[2018-06-15] MEDS: Famotidine 20 MG TAB PO SCH ×2 (08:31→20:41)
[2018-06-15] MEDS: Loratadine 10 MG TAB PO SCH (08:31)
[2018-06-16] MEDS: Thyroid 30 MG TAB PO SCH (05:24)
[2018-06-16] MEDS: Famotidine 20 MG TAB PO SCH ×2 (08:37→20:58)
[2018-06-16] MEDS: Acetaminophen 325 MG TAB PO PRN (08:37)
[2018-06-16] MEDS: Loratadine 10 MG TAB PO SCH (08:37)
[2018-06-17] MEDS: Thyroid 30 MG TAB PO SCH (06:04)
[2018-06-17] MEDS: Loratadine 10 MG TAB PO SCH (09:23)
[2018-06-17] MEDS: Famotidine 20 MG TAB PO SCH ×2 (09:23→19:57)
[2018-06-17] MEDS: Acetaminophen 325 MG TAB PO PRN (12:06)
[2018-06-18] MEDS: Thyroid 30 MG TAB PO SCH (06:15)
[2018-06-18] MEDS: Loratadine 10 MG TAB PO SCH (08:29)
[2018-06-18] MEDS: Famotidine 20 MG TAB PO SCH ×2 (08:29→20:16)
[2018-06-18] MEDS: Acetaminophen 325 MG TAB PO PRN ×2 (08:29→21:11)
[2018-06-18 18:16] VITALS: BMI 20.9
[2018-06-19] MEDS: Thyroid 30 MG TAB PO SCH (05:27)
[2018-06-19] MEDS: Famotidine 20 MG TAB PO SCH ×2 (08:09→20:57)
[2018-06-19] MEDS: Loratadine 10 MG TAB PO SCH (08:09)
[2018-06-20] MEDS: Thyroid 30 MG TAB PO SCH (06:18)
[2018-06-20 08:30] VITALS: BP 168/77; TEMP 98.4
[2018-06-20] MEDS: Famotidine 20 MG TAB PO SCH (08:37)
[2018-06-20] MEDS: Loratadine 10 MG TAB PO SCH (08:37)
--- NOTE | 2018-06-21 08:05 | DIS ---
DATE OF ADMISSION: 05/30/2018 DATE OF DISCHARGE: 06/20/2018 DISCHARGING PHYSICIAN: Juan Shine MD. DISCHARGE DISPOSITION: To [facility]. DISCHARGE DIAGNOSES: 1. Physical debility. 2. Acute rhabdomyolysis, resolved. 3. Mild dementia with no behavioral issues. 4. Stage II right buttock decubitus ulcer. 5. Gait instability. 6. Hypertension. 7. Hypothyroidism. DISCHARGE MEDICATIONS: 1. Metoprolol succinate (Toprol XL) 100 daily. 2. [place] Thyroid 60 daily. 3. Pepcid 20 b.i.d. 4. Loratadine 10 daily. 5. Tylenol 650 q.4 p.r.n. DISCHARGE INSTRUCTIONS: To start PT/OT at shelter. Fall precautions. BRIEF HOSPITAL COURSE: Ms. Traylor the an 82-year-old female who was admitted to [facility], May 23 up to May 30. The patient sustained a fall in her home where she lives by herself and was not found until the next day by a family member. She was found to be hypothermic and had rhabdomyolysis. She was admitted to the ICU and given hydration, and subsequently she improved and was transitioned to the regular floor. Her CPK initially on admission was 10,303, but by discharge, had gone down to 2500 over there. The patient was subsequently transferred to residential due to physical deconditioning and possible placement because she cannot be placed back in her home to live by herself. During hospitalization here, her liver enzymes and CPK were monitored, and everything trended out to be normal. I had a family meeting on June 11, with the patient and her 3 children and we concluded it is best for the patient to be admitted to a shelter. Due to some property issues, this delayed the transfer to shelter, but this was subsequently taken care of. Family had requested for a repeat CT scan of the brain due to fall and a history of subdural hematoma, and a repeat CT scan done on June 11, showed no evidence of any acute intracranial process. The patient improved with physical therapy. On day of discharge, she was able to ambulate with a rolling walker about 600 feet. Her gait was slow and she needed assistance with transfers. The patient was steady, but she was still a very high risk per Physical Therapy. The patient was subsequently transferred to [facility] with the family members. Vital signs upon discharge; temperature 98.4, pulse 73, respirations 18, oxygen 98% on room air, blood pressure 168/77. During hospitalization, her blood pressure medications had to be adjusted a couple of times, initially due to low BP, but subsequently due to elevated BP and blood pressure medicine was changed back to metoprolol succinate (Toprol XL) 100, which she came on, on day the discharge. The patient is a DNR. Job ID: [id number]
== END 2018-06-20 13:50 | DRG 558 ==
LOC: MADMS 16:30
PROVIDERS: ADMIT Family Medicine; ATTEND Family Medicine
DX: M62.82 Rhabdomyolysis (principal); R53.81 Other malaise; F03.90 Unspecified dementia, unspecified severity, without behavioral disturbance, psychotic disturbance, mood disturbance, and anxiety; R26.89 Other abnormalities of gait and mobility; Z66 Do not resuscitate; I10 Essential (primary) hypertension; E03.9 Hypothyroidism, unspecified; D69.6 Thrombocytopenia, unspecified; L89.312 Pressure ulcer of right buttock, stage 2; R79.89 Other specified abnormal findings of blood chemistry; Z95.0 Presence of cardiac pacemaker; Z90.89 Acquired absence of other organs; Z90.710 Acquired absence of both cervix and uterus; Z88.0 Allergy status to penicillin; Z88.4 Allergy status to anesthetic agent; Z91.018 Allergy to other foods
CPT/HCPCS: 36415; 70450; 80053; 82550; 85025

== ENCOUNTER 2019-09-13 10:52 | Emergency (ER) | payer MEDICARE, OTHER ==
[~2019-09-13 10:52] MED LIST: Sodium Chloride 0.9% 1,000 ML BAG ONE
--- NOTE | 2019-09-13 11:44 | CT ---
CT BRAIN WITHOUT CONTRAST: Date: 09/13/2019 HISTORY: Syncope and altered mental status. COMPARISON: 08/19/2019. FINDINGS: Changes of cortical atrophy, chronic small vessel ischemic disease, right frontal bur hole, and focal area of dense calcification in the left middle cranial fossa are redemonstrated. The ventricular size is stable and the basilar cisterns are patent. No evidence of acute infarct, hem orrhage, midline shift, or abnormal extra-axial fluid collections are seen. No acute calvarial abnorm ality is seen. The visualized paranasal sinuses and mastoid air cells are well aerated. IMPRESSION: Stable exam. No CT evidence of acute intracranial process. POS: [facility]
[2019-09-13 12:04] LABS: #Eosinphils 0.1 thou/uL (0.0-0.7); #Lymphocytes 0.9 thou/uL (1.20-3.40); #Monocytes 0.6 thou/uL (0.11-0.59); #Neutrophils 4.6 thou/uL (1.40-6.50); %Basophils 0.4 % (0.0-1.0); %Eosinophils 1.1 % (0.0-10.0); %Lymphocytes 14.5 % (21.0-51.0); %Monocytes 9.8 % (0.0-10.0); %Neutrophils 74.2 % (42.0-75.0); Hemoglobin 15.1 g/dL (12.0-16.0); Mean Corpuscular HGB CONC 30.9 g/dL (32.0-36.0); Mean Corpuscular Volume 90.4 fL (78.0-98.0); Mean Platelet Volume 7.1 fL (7.4-10.4); Platelet Count 162 thou/uL (130-400); RBC Distribution Width 13.7 % (11.5-14.5); White Blood Cell (WBC) Count 6.2 thou/uL (4.8-10.8)
[2019-09-13 12:22] LABS: Bilirubin Negative (Negative); Blood, Urine Trace (Negative); Clarity Clear (Clear); Glucose, Urine (Dipstick) Negative (Negative); Leukocyte Negative (Negative); Nitrite Negative (Negative); Protein, Urine (Dipstick) Negative (Neg-Trace)
[2019-09-13 12:23] LABS: ALT (SGPT) 19 U/L (8-55); AST (SGOT) 19 U/L (5-34); Albumin 4.2 g/dL (3.4-4.8); Alkaline Phosphatase 45 U/L (40-110); Anion Gap 20 mmol/L (10-20); BUN (Urea Nitrogen) 27 mg/dL (9.8-20.1); Bilirubin, Total 0.5 mg/dL (0.2-1.2); CK (CPK) 46 U/L (29-168); Calc. Creatinine Clearance 0 mL/min (70-130); Calcium 8.9 mg/dL (7.8-10.44); Carbon Dioxide 19 mmol/L (23-31); Chloride 108 mmol/L (98-107); Estimated GFR-MDRD 51; Globulin 2.7 g/dL (2.4-3.5); Glucose 111 mg/dL (83-110); Lipase 37 U/L (8-78); Potassium 4.2 mmol/L (3.5-5.1); Protein, Total 6.9 g/dL (6.0-8.3); Sodium 143 mmol/L (136-145)
[2019-09-13 12:35] LABS: Bacteria/HPF Rare-Few HPF (None Seen); Mucous/LPF 1+ LPF (<2+); RBC/HPF 0-3 HPF (0-3); Squamous Epithelial 0-3 HPF (0-3); WBC/HPF 0-3 HPF (0-3)
== END 2019-09-13 17:55 ==
LOC: MADERS 10:52
DX: R55 Syncope and collapse (principal); E03.9 Hypothyroidism, unspecified; I10 Essential (primary) hypertension; F03.90 Unspecified dementia, unspecified severity, without behavioral disturbance, psychotic disturbance, mood disturbance, and anxiety; Z79.899 Other long term (current) drug therapy
CPT/HCPCS: 36415; 70450; 80053; 81003; 81015; 82550; 83605; 83690; 84484; 85025; 93005; 94760; 96360; 96361; J7050

== ENCOUNTER 2019-11-05 16:08 | Emergency (ER) | payer MEDICARE, OTHER ==
--- NOTE | 2019-11-05 16:33 | RAD ---
EXAM: Single view of the chest HISTORY: Syncope COMPARISON: 08/19/2019 FINDINGS: Single view of the chest shows a normal sized cardiomediastinal silhouette. The pacemaker is unchanged in position. There is no evidence of consolidation, mass, or pleural effusion. The bones are unremarkable IMPRESSION: No evidence of acute cardiopulmonary disease
[2019-11-05 17:03] LABS: #Eosinphils 0.1 thou/uL (0.0-0.7); #Lymphocytes 1.1 thou/uL (1.20-3.40); #Monocytes 0.8 thou/uL (0.11-0.59); #Neutrophils 5.2 thou/uL (1.40-6.50); %Basophils 0.6 % (0.0-1.0); %Eosinophils 1.1 % (0.0-10.0); %Lymphocytes 14.6 % (21.0-51.0); %Monocytes 10.7 % (0.0-10.0); Hemoglobin 14.8 g/dL (12.0-16.0); Mean Corpuscular HGB CONC 32.3 g/dL (32.0-36.0); Mean Corpuscular Hemoglobin 28.8 pg (27.0-31.0); Mean Corpuscular Volume 89.3 fL (78.0-98.0); Mean Platelet Volume 7.1 fL (7.4-10.4); Platelet Count 200 thou/uL (130-400); RBC Distribution Width 13.4 % (11.5-14.5); Red Blood Cell (RBC) Count 5.14 mill/uL (4.20-5.40); White Blood Cell (WBC) Count 7.2 thou/uL (4.8-10.8)
[2019-11-05 17:17] LABS: Bilirubin Negative (Negative); Blood, Urine Negative (Negative); Clarity Slightly Cloudy (Clear); Glucose, Urine (Dipstick) Negative (Negative); Ketone, Urine Negative (Negative); Leukocyte Negative (Negative); Nitrite Positive (Negative); Protein, Urine (Dipstick) 30 mg/dL (Neg-Trace); Specific Gravity, Urine 1.025 (1.005-1.030); pH, Urine 5.5 (5.0-9.0)
[2019-11-05 17:18] LABS: ALT (SGPT) 12 U/L (8-55); AST (SGOT) 14 U/L (5-34); Albumin 3.7 g/dL (3.4-4.8); Alkaline Phosphatase 53 U/L (40-110); Anion Gap 16 mmol/L (10-20); BUN (Urea Nitrogen) 23 mg/dL (9.8-20.1); Bilirubin, Total 0.4 mg/dL (0.2-1.2); Calc. Creatinine Clearance 0 mL/min (70-130); Calcium 8.3 mg/dL (7.8-10.44); Carbon Dioxide 21 mmol/L (23-31); Chloride 111 mmol/L (98-107); Estimated GFR-MDRD 48; Globulin 2.7 g/dL (2.4-3.5); Glucose 135 mg/dL (83-110); Protein, Total 6.4 g/dL (6.0-8.3); Sodium 144 mmol/L (136-145)
[2019-11-05 17:18] LABS: Bacteria/HPF 3+ HPF (None Seen); RBC/HPF 0-3 HPF (0-3); Squamous Epithelial 0-3 HPF (0-3)
[2019-11-05] MEDS ORDERED: Nitrofurantoin Monohyd/M-Cryst 100 MG CAP ONE (19:37)
== END 2019-11-05 20:40 ==
LOC: MADERS 16:08
DX: N39.0 Urinary tract infection, site not specified (principal); E03.9 Hypothyroidism, unspecified; I10 Essential (primary) hypertension; F03.90 Unspecified dementia, unspecified severity, without behavioral disturbance, psychotic disturbance, mood disturbance, and anxiety; Z79.899 Other long term (current) drug therapy
CPT/HCPCS: 36415; 51701; 71045; 80053; 81003; 81015; 83605; 83880; 84484; 85025; 93005; 96360; 96361

== ENCOUNTER 2020-01-17 14:40 | Emergency (ER) | payer MEDICARE ==
--- NOTE | 2020-01-17 15:38 | RAD ---
RIGHT WRIST 3 VIEWS: HISTORY: Injury. COMPARISON: None. FINDINGS: Exam is limited due to the overlying catheter. There is old ulnar styloid injury and widened scaphol unate interval. Lateral radiograph is inadequate. Age-indeterminate transversely oriented distal ra dius fracture. IMPRESSION: Age-indeterminate transversely oriented distal radius fracture without definite intraarticular extens ion. Repeat lateral radiograph is recommended. POS: HOME
--- NOTE | 2020-01-17 15:39 | RAD ---
RIGHT SHOULDER 3 VIEWS: HISTORY: Injury. COMPARISON: None. FINDINGS: There is mild narrowing of the acromioclavicular joint. Large subacromial enthesophyte. Visualized ribs are intact. No acute fracture or malalignment. IMPRESSION: No acute osseous abnormality. POS: HOME
== END 2020-01-17 17:55 ==
LOC: MADERS 14:40
DX: S52.501A Unspecified fracture of the lower end of right radius, initial encounter for closed fracture (principal); M25.511 Pain in right shoulder; E03.9 Hypothyroidism, unspecified; W18.30XA Fall on same level, unspecified, initial encounter
CPT/HCPCS: 25600